=== PATIENT | male | born 1945 | race Caucasian/White ===

== ENCOUNTER → 2017-06-30 | Outpatient (CLI) | payer OTHER | LOC: BMCIMAGING 13:32 | PROVIDERS: ATTEND Internal Medicine | DX: S22.42XA Multiple fractures of ribs, left side, initial encounter for closed fracture (principal); R91.1 Solitary pulmonary nodule | CPT/HCPCS: 71101-PO ==

== ENCOUNTER → 2018-04-27 | Outpatient (CLI) | payer OTHER | LOC: BMCIMAGING 08:08 | PROVIDERS: ATTEND Internal Medicine | DX: K86.2 Cyst of pancreas (principal) | CPT/HCPCS: 82495-90 ==

== ENCOUNTER → 2018-05-08 | Outpatient (CLI) | payer OTHER | LOC: FIMAGING 08:26 | PROVIDERS: ATTEND Internal Medicine | DX: K86.2 Cyst of pancreas (principal); K83.8 Other specified diseases of biliary tract; K76.89 Other specified diseases of liver ==

== ENCOUNTER → 2018-08-12 | Outpatient (CLI) | payer OTHER | LOC: BMCIMAGING 11:18 | PROVIDERS: ATTEND Internal Medicine Cardiovascular Disease | DX: R07.9 Chest pain, unspecified (principal); Z95.0 Presence of cardiac pacemaker ==

== ENCOUNTER → 2018-12-21 | Outpatient (CLI) | payer OTHER | LOC: BMCIMAGING 10:41 | PROVIDERS: ATTEND Allergy & Immunology Allergy | DX: R09.81 Nasal congestion (principal); J34.89 Other specified disorders of nose and nasal sinuses ==

== ENCOUNTER → 2019-01-02 | Outpatient (CLI) | payer OTHER | LOC: FIMAGING 09:08 ==

== ENCOUNTER 2019-01-06 07:15 | Inpatient (IN) | payer OTHER ==
--- NOTE | 2019-01-06 06:19 | PDHPUP ---
History & Physical Update H&P update statement: This history and physical update is based on an assessment of the patient which was completed after admission or registration (within 24 hours), but prior to the surgery/procedure. H&P update: H&P reviewed & patient examined, no change in patient's condition since H&P completed
[~2019-01-06 07:15] MED LIST: ROPIVACAINE 0.2% 80 MG, EPINEPHrine 0.2 MG, KETOROLAC TROMETHAMINE 30 MG in SYRINGE 0 ML IU ONE; TRANEXAMIC ACID 3,000 MG in NS (SYRINGE) 50 ML IRR ONE; TRANEXAMIC ACID 3,000 MG/50 ML BAG IRR ONE; VANCOMYCIN 1.25 GM in NS 250 ML IV ONE; VANCOMYCIN PHARMACY TO DOSE MISC ONE
[2019-01-06] MEDS ORDERED: DEXAMETHASONE 4 MG/ML VIAL IVP ONE (09:49)
[2019-01-06] MEDS ORDERED: FAMOTIDINE 20 MG TAB PO ONE (09:49)
[2019-01-06] MEDS ORDERED: LR 1,000 ML IV ONE (11:01)
[2019-01-06] MEDS ORDERED: LIDOCAINE 1% 2 ML INJ ID PRN (11:01)
--- NOTE | 2019-01-06 11:44 | PDANEPAE ---
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 - Neurologic History Hx Cerebrovascular Accident: No Hx Seizures: No Hx Dementia: No - Endocrine History Hx Diabetes: No - Renal History Hx Renal Disorders: No Renal History Comment: BPH - Liver History Hx Hepatic Disorders: No - Neurological & Psychiatric Hx Hx Neurological and Psychiatric Disorders: Yes Neurological / Psychiatric History Comment: episodic pain -neck and arms.No numbness - Cancer History Hx Cancer: No - Congenital Disorder History Hx Congenital Disorders: No - GI History Hx Gastrointestinal Disorders: Yes Gastrointestinal History Comment: GERD - Other Health History Other Health History: OSTEOARTHRITIS. 1 dental implant, - Chronic Pain History Chronic Pain: Yes (LT HIP,CERVICAL SPINE) - Surgical History Prior Surgeries: PACEMAKER 08/2018. TURP 2016. LT CATARACT. R hip resurfacing -Repine '09,. CERVICAL FUSION 2017. L4/5 fusion ',. Bilat knee scopes ''s ,. LASIK. 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[employer] VINICIUS Patient History - Allergies Allergies/Adverse Reactions: Cephalosporins Allergy (Verified 01/06/19 09:52) Hives - Home Medications Home Medications: Lisinopril [Zestril 5 mg (*)] 5 mg PO DAILY 07/22/16 [Last Taken 01/05/19 06:00] Triazolam [Halcion 0.25MG (*)] 0.25 mg PO HS PRN 07/22/16 [Last Taken 01/05/19 21:00] Aspirin [Aspirin 81mg (*)] 81 mg PO DAILY 01/01/19 [Last Taken 12/28/18] Atorvastatin Calcium [Lipitor 40 mg (*)] 40 mg PO DAILY 01/01/19 [Last Taken 04/21 07:30] Ranitidine HCl [Zantac] 150 mg PO BID 01/01/19 [Last Taken 01/05/19] celeCOXIB [Celebrex (*)] 200 mg PO DAILY 01/01/19 [Last Taken 01/06/19 07:00] - NPO status NPO Since - Liquids (Date): 01/06/19 NPO Since - Liquids (Time): 07:30 NPO Since - Solids (Date): 01/05/19 NPO Since - Solids (Time): 19:00 - Smoking Hx Smoking Status: Never smoked ANE Labs/Vital Signs - Vital Signs Blood Pressure: 106/82 Heart Rate: 65 Respiratory Rate: 16 O2 Sat (%): 96 Height: 185.42 cm Weight: 87.09 kg ANE Physical Exam - Airway Mallampati Score: Class 2 - ASA Status ASA Status: III ANE Anesthesia Plan Anesthesia Plan: spinal
[2019-01-06] MEDS ORDERED: MIDAZOLAM 2 MG/2 ML VIAL ONE (11:52)
[2019-01-06] MEDS ORDERED: PROPOFOL/EMULSION 500 MG/50 ML BOTTLE IV ONE ×2 (11:53→12:48)
[2019-01-06] MEDS ORDERED: fentaNYL 100 MCG/2 ML INJ ONE ×3 (11:53→14:32)
[2019-01-06] MEDS ORDERED: ONDANSETRON 4 MG/2 ML VIAL ONE (12:08)
[2019-01-06] MEDS ORDERED: BUPIVACAINE/DEXTROSE 7.5MG/ML 2 ML SPINAL AMP SP ONE (12:08)
[2019-01-06] MEDS ORDERED: METOCLOPRAMIDE 10 MG/2 ML VIAL IVP PRN (13:21)
[2019-01-06] MEDS ORDERED: DIPHENOXYLATE/ATROPINE LOMOTIL 1 TAB PO PRN (13:21)
[2019-01-06] MEDS ORDERED: POLYETHYLENE GLYCOL 3350 17 GM PKT PO PRN (13:21)
[2019-01-06] MEDS ORDERED: PROMETHAZINE HCL 25 MG SUPPR PR PRN (13:21)
[2019-01-06] MEDS ORDERED: PROMETHAZINE HCL 25 MG/ML INJ IVP PRN ×2 (13:21→13:28)
[2019-01-06] MEDS ORDERED: HYDROCODONE/APAP 10/325 TAB PO PRN (13:21)
[2019-01-06] MEDS ORDERED: TEMAZEPAM 15 MG CAP PO PRN (13:21)
[2019-01-06] MEDS ORDERED: MAGNESIUM HYDROXIDE 30 ML UDCUP PO PRN (13:21)
[2019-01-06] MEDS ORDERED: ONDANSETRON 4 MG/2 ML VIAL IVP PRN (13:21)
[2019-01-06] MEDS ORDERED: BISACODYL 10 MG SUPP PR PRN (13:21)
[2019-01-06] MEDS ORDERED: LACTULOSE 20 GM/30 ML UDCUP PO PRN (13:21)
[2019-01-06] MEDS ORDERED: diphenhydrAMINE 25 MG CAP PO PRN (13:21)
[2019-01-06] MEDS ORDERED: ONDANSETRON DISINTEGRATING 4 MG TAB PO PRN (13:21)
--- NOTE | 2019-01-06 13:21 | POSTOPPROG ---
Post Op Note Date of Operation: 01/06/19 Surgeon: Gisele Romero Cable Installation Technician: jaqueline romero PA-C and Khushboo Black PA-C Anesthesiologist: dr. selby Anesthesia: Spinal Pre-op Diagnosis: left hip OA Post-op Diagnosis: same Indication: left hip pain Procedure: L ARELY ant approach Findings: severe hip OA Inf/Abcess present in the surg proc area at time of surgery?: No EBL: 500-1000
[2019-01-06] MEDS ORDERED: TRIAZOLAM 0.25 MG TAB PO PRN (13:23)
[2019-01-06] MEDS ORDERED: LR 500 ML IV PRN (13:28)
[2019-01-06] MEDS ORDERED: PHENYLEPHRINE HCL 100 MCG/ML SYR IVP PRN (13:28)
[2019-01-06] MEDS ORDERED: NALOXONE HCL 0.4 MG/ML INJ IVP PRN (13:28)
--- NOTE | 2019-01-06 13:29 | POSTANESTH ---
Post Anesthetic Evaluation Cardiovascular Status: Similar to Pre-Op Cond Respiratory Status: Normal, Stable Level of Consciousness/Mental Status: Can Participate in Eval Pain Control: Adequate, Prn Tx Ordered Nausea/Vomiting Control: Adequate, Prn Tx Ordered Complications Possibly Related to Anesthesia: None Noted
[2019-01-06] MEDS ORDERED: LR 1,000 ML IV SCH (13:30)
[2019-01-06] MEDS ORDERED: HYDROmorphONE/DILAUDID 2 MG/ML INJ ONE (13:44)
[2019-01-06] MEDS: fentaNYL 100 MCG/2 ML INJ IVP PRN ×3 (13:46→14:40)
[2019-01-06] MEDS: HYDROmorphONE/DILAUDID 2 MG/ML INJ IVP PRN ×5 (13:49→15:41)
[2019-01-06] MEDS: CYCLOBENZAPRINE 10 MG TAB PO PRN ×2 (16:00→23:46)
--- NOTE | 2019-01-06 18:02 | PDMN ---
Medical Necessity Medical necessity: [facility] IP only surgery; cpt 72219 L ARELY
[2019-01-06] MEDS ORDERED: HYDROCODONE/APAP 10/325 TAB PO ONE (18:45)
[2019-01-06] MEDS: SENNOSIDES/DOCUSATE SODIUM TAB PO SCH (20:45)
[2019-01-06] MEDS: ASPIRIN 81 MG CHEWABLE TAB PO SCH (20:45)
[2019-01-06] MEDS: FAMOTIDINE 20 MG TAB PO SCH (20:45)
[2019-01-06] MEDS ORDERED: VANCOMYCIN 1.25 GM in NS 250 ML IV ONE (22:30)
[2019-01-07] MEDS: HYDROCODONE/APAP 10/325 TAB PO PRN ×2 (01:23→08:23)
[2019-01-07 07:26] VITALS: BP 100/68
[2019-01-07] MEDS: FAMOTIDINE 20 MG TAB PO SCH (07:31)
[2019-01-07] MEDS: ASPIRIN 81 MG CHEWABLE TAB PO SCH (08:25)
[2019-01-07] MEDS: SENNOSIDES/DOCUSATE SODIUM TAB PO SCH (08:27)
[2019-01-07] MEDS: CYCLOBENZAPRINE 10 MG TAB PO PRN (08:31)
[2019-01-07] MEDS ORDERED: ATORVASTATIN CALCIUM 40 MG TAB PO SCH (09:00)
[2019-01-07] MEDS ORDERED: LISINOPRIL 5 MG TAB PO SCH (09:00)
--- NOTE | 2019-01-07 09:16 | SOAPPROG ---
SOAP Progress Note Assessment/Plan: Assessment: Patient is doing well POD 1 s/p L ARELY Pain management: pain is well controlled on oral pain meds. VTE ppx: recommend aspirin 81 mg BID for 4 weeks, cont SOFIA and SCDs D/c planning: Patient has done better than anticipated and would like to be discharged to home today. Patient must be released from PT before discharge to home. postop urinary retention: straight cath'd yesterday, resolved today patient has history of swelling and returning to the hospital POD 2-5 due to swelling. He had this postop R hip resurfacing and postop spine surgery several years ago. For both instances, he was admitted to the hospital, negative workup for cellulitis and DVT. Educated patient that swelling will worsen the first week after surgery and encouraged patient to wear thigh high SOFIA hose during the daytime for two weeks. Encouraged patient to call our office if he has questions or concerns arise Plan: 01/07/19 09:13 01/07/19 09:16 Subjective: Keshav is doing well today, denies SOB, chest pain and N/V Objective: Vital Signs Temp Pulse Resp BP Pulse Ox 36.8 C 59 L 16 100/68 93 01/07/19 07:23 01/07/19 07:23 01/07/19 07:23 01/07/19 07:23 01/07/19 07:23 Laboratory Results 01/07/19 05:16 01/06/19 01/07/19 01/08/19 05:59 05:59 05:59 Intake Total 1865 250 Output Total 1900 Balance -35 250 LLE: incision dressing is clean and dry, NVI, +pf/df ICD10 Worksheet Patient Problems: Problems Problem Status Onset Primary osteoarthritis of left hip Acute Cervical vertebral fusion Acute Mild dehydration Acute Postoperative pain Acute
--- NOTE | 2019-01-07 10:02 | ASMTLACE ---
LACE Length of stay for Answers: 2 days current admission Acuity / Level of Answers: Yes Care: Did the patient have an inpatient admission? Comorbidities - select Answers: Coronary Artery Disease all that apply Opioid dependence / Chronic pain # of Emergency department Answers: 0 visits in the last 6 months Score: 11 Date Signed: 01/07/2019 10:02 AM Electronically Signed By:NOAH Kumar
--- NOTE | 2019-01-07 11:06 | GDS ---
[f rep st] DISCHARGE SUMMARY ADMISSION DIAGNOSIS: Left hip osteoarthritis. DISCHARGE DIAGNOSIS: Left hip osteoarthritis. PROCEDURE: Left total hip arthroplasty. VTE PROPHYLAXIS: Recommend aspirin 81 mg twice daily for 4 weeks. BRIEF DESCRIPTION OF HOSPITAL STAY: Patient was admitted for an elective joint arthroplasty. The pa tient tolerated the procedure well and has passed physical therapy. The patient was given appropriat e antibiotic prophylaxis and venous thromboembolism prophylaxis. The patient's pain was well control led on oral pain medication, patient was holding down food, and had urinated. Decision was made to d ischarge the patient. The patient was given post-operative prescriptions pre-operatively. PLAN: Followup as scheduled with Dr. Asencio's office in 3 weeks. /[id number]/MODL
--- NOTE | 2019-01-07 17:28 | GOP ---
[f rep st] OPERATIVE REPORT DATE OF OPERATION: 01/06/2019 SURGEON: Beck Asencio MD ENGINE BUILDER: Liliane Asencio PA-C, and Khushboo Black PA-C. ANESTHESIA: Spinal. PREOPERATIVE DIAGNOSIS: Left hip osteoarthritis. POSTOPERATIVE DIAGNOSIS: Left hip osteoarthritis. PROCEDURE PERFORMED: Left total hip arthroplasty with navigation. FINDINGS: ESTIMATED BLOOD LOSS: 200 cc. INDICATIONS: The patient has progressively worsening arthritis of the hip which has failed medical m anagement. The patient understands the treatment option including continued non-operative care and h as selected surgical intervention. The patient has decided to undergo total hip arthroplasty via the direct anterior approach understanding the risks of the procedure including, but not limited to, adela rovascular injury, infection, persistent pain, component wear and loosening, deep venous thrombosis, pulmonary embolism, limb length inequality (including dislocation), and intraoperative fractures. DESCRIPTION OF PROCEDURE: After proper identification of the patient including verification and john ing the surgical site, the patient was brought to the operating room and placed in the supine positio n. All bony prominences were well padded. Anesthesia was induced without complication and intraveno us prophylactic antibiotics were administered prior to skin incision. After prepping and draping in the usual sterile fashion, attention was drawn to the contralateral pel vis for attachment of the computer navigation tracker. Three percutaneous incisions were made over t he iliac crest and the pelvic tracker was affixed using threaded 3.5 mm pins yielding excellent fixat ion. Using computer navigation the patient's leg length and topographical pelvic anatomy was registe red without complication. Attention was then drawn to surgical exposure of the hip. An incision was made with a #10 Bard Lior r blade starting 3 cm lateral and 3 cm distal to the anterior superior iliac spine measuring 8 cm to 10 cm and coursing distally toward the greater trochanter. The skin and subcutaneous tissues were di vided sharply down the fascia amber. The fascia amber was incised in line with the skin incision expos ing the underlying tensor fascia amber muscle. This muscle was bluntly elevated from the fascia and t he first extracapsular Cobra retractor was placed laterally at the junction of the superior femoral n vee and greater trochanter. The lateral femoral circumflex vessels were identified, cauterized and d ivided with the Aquamantys bipolar cautery. The deep investing fascia of the TFL was divided to allo w proper mobilization of the muscle preventing damage during retraction. The reflected head of the r ectus femoris muscle was elevated off the anterior hip capsule and a medial Cobra retractor was place d just proximal to the lesser trochanter. The anterior capsulotomy was made sharply from the superolateral acetabulum to the saddle junction of the superior femoral neck and greater trochanter, then coursing inferomedial towards the lesser troc hanter. The retractors were then placed in the intracapsular position for femoral neck osteotomy. C orresponding to preoperative templating the osteotomy was made with the oscillating saw protecting th e greater trochanter and soft tissues. The femoral head was removed from the acetabulum with a corks crew and confirmed to be severely arthritic with exposed bone, deformity and osteophytes. Similar fi nding were confirmed in the acetabulum. The Arch table extension was then placed in 40 degrees external rotation. Attention was then drawn t o the acetabular preparation. After placement of the anterior and posterior Cobra retractors outside the labrum and intrascapular the circumferential labrum was removed sharply. The foveal contents we re then removed and hemostasis obtained with cautery. The anatomy of the acetabulum was then registe red using computer navigation. The first reamer selected was sized using the removed femoral head. Reaming began with robotic ashley t at 40 degrees of abduction and 20 degrees of anteversion using computer navigation. Reaming ceased 0 mm less than the definitive acetabular component. The final acetabular component was inserted usi ng the computer to achieve proper orientation yielding excellent purchase and stability in the acetab ulum. The final acetabular liner was then placed and its seating confirmed. Attention was then turned to the femur. The Arch table extension was placed in extension and adducti on delivering the osteotomized femoral neck into the wound. A 2-pronged femoral elevator was placed at the calcar and another at the tip of the greater trochanter. The posterolateral capsule was relea sed with cautery allowing mobilization of the femur lateral and anterior for preparation. The priming mixture carrier al rotators were visualized and preserved. A curette and rongeur were used to open the starting poin t for broaching. Serial broaching started with the #0 broach and ended with the broach that exhibited excellent fit in the proximal femur. A change in pitch during mallet strikes was accompanied by the inability to advance the broach any further. The trial reduction was performed and fluoroscopic debora igation was utilized to check limb length. Adjustments were made to equalize limb length accordingly . After the final trials were accepted they were removed and the wound was copiously lavaged. The femo ral component was seated to the same depth as the final broach and the femoral head was impacted onto the clean trunnion. The hip was then reduced for the final time and once more fluoroscopic navigati on used to check that limb length equality was achieved. The wound was irrigated and closed in layers, the fascia amber with 2-0 Quill, the subcutaneous tissue with a 2-0 Quill, and the skin with Dermabond, including the small incisions for computer navigation . Sterile dressings were applied. Final sharps and sponge counts were accurate. The patient was th en transferred to a hospital bed and brought to the recovery room in stable condition. IMPLANTS: Accolade II size 6 at 132, acetabular component 60 mm Trident II. Liner is a Trident X3, 36 mm. Head is a Biolox Delta 36 mm +0. /[id number]/MODL
== END 2019-01-07 12:10 | disposition home or self-care (01) | DRG 470 ==
LOC: F3N 09:37
PROVIDERS: ADMIT Orthopaedic Surgery; ATTEND Orthopaedic Surgery
DX: M16.12 Unilateral primary osteoarthritis, left hip (principal); G47.33 Obstructive sleep apnea (adult) (pediatric); K21.9 Gastro-esophageal reflux disease without esophagitis; Z95.0 Presence of cardiac pacemaker; Z98.1 Arthrodesis status
CPT/HCPCS: 97116-GP; 97161-GP; J0171; J1100; J1170; J1885; J2250; J2270; J2405; J2704; J2795; J3010; J3370